=== PATIENT | male | born 1970 | race Caucasian/White ===

== ENCOUNTER 2017-05-27 10:39 | Emergency (ER) | payer MEDICAID ==
[~2017-05-27] VITALS: Ht 175.3 cm; Wt 69.0 kg
[2017-05-27 11:27] LABS: BASOPHILS % 0.5 % (0.0-2.0); EOSINOPHILS % 2.4 % (0.0-5.0); HEMATOCRIT. 36.5 % (42.0-52.0); HEMOGLOBIN. 12.8 g/dL (14.0-18.0); LYMPHOCYTES % 25.5 % (20.0-50.0); MEAN CORPUSCULAR HEMOGLOBIN 32.2 pg (28.0-32.0); MEAN CORPUSCULAR VOLUME 91.8 fL (80.0-94.0); MONOCYTES % 8.1 % (2.0-8.0); NEUTROPHILS % 63.5 % (40.0-76.0); PLATELET 189 x1000/uL (130-400); RED BLOOD CELL COUNT 3.98 mill/uL (4.7-6.1); RED CELL DISTRIBUTION WIDTH 13.7 % (11.6-14.6)
[2017-05-27 11:41] LABS: CARBON DIOXIDE 31 mEq/L (21-32); CHLORIDE 104 mEq/L (98-107); ETHANOL BLOOD < 10 mg/dL
[2017-05-27 12:09] LABS: CLARITY URINE CLEAR (CLEAR); COLOR URINE YELLOW (YELLOW); GLUCOSE URINE NEGATIVE (NEGATIVE); KETONES URINE NEGATIVE (NEGATIVE); LEUKOCYTE ESTERASE URINE NEGATIVE (NEGATIVE); NITRITE URINE NEGATIVE (NEGATIVE); OCCULT BLOOD URINE NEGATIVE (NEGATIVE); PROTEIN URINE NEGATIVE (NEGATIVE); SPECIFIC GRAVITY URINE 1.028 (1.005-1.030)
[2017-05-27 12:39] LABS: *AMPHETAMINES SCREEN URINE PRESUMTIVE POSITIVE (NEGATIVE); *BARBITURATES SCREEN URINE NEGATIVE (NEGATIVE); *BENZODIAZEPINES SCREEN URINE NEGATIVE (NEGATIVE); *COCAINE SCREEN URINE NEGATIVE (NEGATIVE); CANNABINOID URINE SCREEN NEGATIVE (NEGATIVE); METHADONE URINE SCREEN NEGATIVE (NEGATIVE); OPIATES URINE SCREEN NEGATIVE (NEGATIVE); PHENCYCLIDINE URINE SCREEN NEGATIVE (NEGATIVE)
[2017-05-27 20:23] VITALS: BP 120/58
== END 2017-05-27 20:40 ==
LOC: ER 15:51
DX: R45.851 Suicidal ideations (principal); R44.1 Visual hallucinations; F17.200 Nicotine dependence, unspecified, uncomplicated; I10 Essential (primary) hypertension; F32.9 Major depressive disorder, single episode, unspecified; F20.9 Schizophrenia, unspecified; M19.90 Unspecified osteoarthritis, unspecified site; Z88.5 Allergy status to narcotic agent
CPT/HCPCS: 36415; 80053; 80305; 80307; 80329; 81003; 85025; 99285; G0482

== ENCOUNTER 2017-11-22 13:07 | Inpatient (IN) | payer MEDICAID ==
[~2017-11-22] VITALS: Ht 175.3 cm; Wt 68.0 kg
[2017-11-22] MEDS ORDERED: ONDANSETRON HCL 4MG/2ML VIAL IV STA (15:13)
[2017-11-22] MEDS ORDERED: KETOROLAC 30MG/ML VIAL IV ONE (15:15)
[2017-11-22 15:47] LABS: BASOPHILS % 0.6 % (0.0-2.0); EOSINOPHILS % 3.4 % (0.0-5.0); HEMATOCRIT. 37.6 % (42.0-52.0); LYMPHOCYTES % 21.5 % (20.0-50.0); MEAN CORPUSCULAR HEMOGLOBIN 31.5 pg (28.0-32.0); MEAN PLATELET VOLUME 6.8 fl (7.4-10.4); MONOCYTES % 7.2 % (2.0-8.0); NEUTROPHILS % 67.3 % (40.0-76.0); PLATELET 246 x1000/uL (130-400); RED BLOOD CELL COUNT 4.13 mill/uL (4.7-6.1); RED CELL DISTRIBUTION WIDTH 13.4 % (11.6-14.6)
[2017-11-22 15:52] LABS: INR 1.1; PROTHROMBIN TIME 11.8 sec (9.4-11.6)
[2017-11-22 15:58] LABS: CLARITY URINE CLEAR (CLEAR); COLOR URINE YELLOW (YELLOW); KETONES URINE 1+ (NEGATIVE); LEUKOCYTE ESTERASE URINE NEGATIVE (NEGATIVE); NITRITE URINE NEGATIVE (NEGATIVE); OCCULT BLOOD URINE NEGATIVE (NEGATIVE); PROTEIN URINE NEGATIVE (NEGATIVE); SPECIFIC GRAVITY URINE 1.034 (1.005-1.030); UROBILINOGEN URINE 0.2 E.U./dL (0.2-1.0)
[2017-11-22 16:00] LABS: CHLORIDE 99 mEq/L (98-107)
[2017-11-22 16:05] LABS: CARBON DIOXIDE 25 mEq/L (21-32)
[2017-11-22 16:06] LABS: ETHANOL BLOOD < 10 mg/dL
[2017-11-22 16:12] LABS: *AMPHETAMINES SCREEN URINE PRESUMTIVE POSITIVE (NEGATIVE); *BARBITURATES SCREEN URINE NEGATIVE (NEGATIVE); *BENZODIAZEPINES SCREEN URINE NEGATIVE (NEGATIVE); *COCAINE SCREEN URINE NEGATIVE (NEGATIVE); CANNABINOID URINE SCREEN NEGATIVE (NEGATIVE); METHADONE URINE SCREEN NEGATIVE (NEGATIVE); OPIATES URINE SCREEN NEGATIVE (NEGATIVE); PHENCYCLIDINE URINE SCREEN NEGATIVE (NEGATIVE)
[2017-11-22] MEDS ORDERED: IOHEXOL-300 100 ML BOTTLE ONE (17:13)
[2017-11-22] MEDS ORDERED: METRONIDAZOLE 500 MG PREMIX 100 ML IV ONE (18:15)
[2017-11-22] MEDS ORDERED: LEVOFLOXACIN 750MG PREMIX 150 ML IV ONE (18:15)
[2017-11-22] MEDS ORDERED: GUAIFENESIN 200MG/10ML SUGAR FREE UDC PO PRN (19:30)
[2017-11-22] MEDS ORDERED: DOCUSATE SODIUM 100MG CAPSULE PO PRN (19:30)
[2017-11-22] MEDS ORDERED: HYDROCODONE/ACETAMINOPHEN 5/325MG TABLET PO PRN (19:30)
[2017-11-22] MEDS ORDERED: IPRATROPIUM/ALBUTEROL 0.5-3(2.5)MG/3ML NEB INH PRN (19:30)
[2017-11-22] MEDS ORDERED: MAGNESIUM/ALUMINUM HYDROXIDE/SIMETHICONE 30ML UDC PO PRN (19:30)
[2017-11-22] MEDS ORDERED: ONDANSETRON HCL 4MG/2ML VIAL IV PRN (19:30)
[2017-11-22] MEDS ORDERED: CLONIDINE 0.1MG TABLET PO PRN (19:30)
[2017-11-22] MEDS ORDERED: ACETAMINOPHEN 325MG TABLET PO PRN (19:30)
[2017-11-22 20:36] LABS: HEPATITIS B SURFACE ANTIGEN NEGATIVE
[2017-11-22 21:04] LABS: HEPATITIS B CORE AB IGM NEGATIVE
[2017-11-22 21:06] LABS: HEPATITIS A AB IGM NEGATIVE (NEGATIVE)
[2017-11-22 21:17] LABS: CHLORIDE 100 mEq/L (98-107)
[2017-11-22 21:19] LABS: CARBON DIOXIDE 31 mEq/L (21-32)
[2017-11-23 06:07] LABS: BASOPHILS % 0.8 % (0.0-2.0); EOSINOPHILS % 4.5 % (0.0-5.0); HEMATOCRIT. 37.7 % (42.0-52.0); LYMPHOCYTES % 19.2 % (20.0-50.0); MEAN CORPUSCULAR HEMOGLOBIN 31.6 pg (28.0-32.0); MEAN CORPUSCULAR VOLUME 91.4 fL (80.0-94.0); MEAN PLATELET VOLUME 7.1 fl (7.4-10.4); MONOCYTES % 8.7 % (2.0-8.0); NEUTROPHILS % 66.8 % (40.0-76.0); PLATELET 223 x1000/uL (130-400); RED BLOOD CELL COUNT 4.12 mill/uL (4.7-6.1); RED CELL DISTRIBUTION WIDTH 13.3 % (11.6-14.6)
[2017-11-23 09:45] VITALS: BP 97/57
[2017-11-23] MEDS: SODIUM CHLORIDE 0.9% 1,000 ML IV SCH ×2 (11:00→17:51)
[2017-11-23 12:29] VITALS: BP 90/44
[2017-11-23] MEDS ORDERED: LEVOFLOXACIN 500MG PREMIX 100 ML IV SCH (15:00)
[2017-11-23] MEDS ORDERED: CLON0.1T PO (16:36)
[2017-11-23] MEDS ORDERED: QUET200T PO (16:36)
[2017-11-23 16:38] VITALS: BP 102/59
[2017-11-23] MEDS: METRONIDAZOLE 500 MG PREMIX 100 ML IV SCH ×2 (17:36→22:19)
[2017-11-23] MEDS: ENOXAPARIN 40MG/0.4ML SYR SUBCUT SCH (17:53)
[2017-11-23] MEDS: CLONIDINE 0.1MG TABLET PO SCH (18:00)
[2017-11-23] MEDS: LEVOFLOXACIN 500MG PREMIX 100 ML IV SCH (19:08)
[2017-11-23 20:00] VITALS: BP 109/67
[2017-11-23] MEDS: QUETIAPINE FUMARATE 100MG TABLET PO SCH (22:19)
[2017-11-24] VITALS: BP 117/62
[2017-11-24 04:00] VITALS: BP 103/71
[2017-11-24] MEDS: METRONIDAZOLE 500 MG PREMIX 100 ML IV SCH ×3 (06:20→21:52)
[2017-11-24] MEDS: CLONIDINE 0.1MG TABLET PO SCH ×2 (06:21→18:00)
[2017-11-24] MEDS: SODIUM CHLORIDE 0.9% 1,000 ML IV SCH ×2 (06:22→11:25)
[2017-11-24 08:00] VITALS: BP 113/69
[2017-11-24] MEDS: QUETIAPINE FUMARATE 100MG TABLET PO SCH ×2 (09:08→21:51)
[2017-11-24 12:00] VITALS: BP 101/63
[2017-11-24] MEDS: ENOXAPARIN 40MG/0.4ML SYR SUBCUT SCH (15:26)
[2017-11-24 16:00] VITALS: BP 130/67
[2017-11-24] MEDS: LEVOFLOXACIN 500MG PREMIX 100 ML IV SCH (18:04)
[2017-11-24 20:35] VITALS: BP 104/66
[2017-11-25] MEDS: SODIUM CHLORIDE 0.9% 1,000 ML IV SCH ×2 (00:45→13:13)
[2017-11-25 00:50] VITALS: BP 98/56
[2017-11-25 04:00] VITALS: BP 106/62
[2017-11-25] MEDS: CLONIDINE 0.1MG TABLET PO SCH (06:00)
[2017-11-25] MEDS: METRONIDAZOLE 500 MG PREMIX 100 ML IV SCH ×2 (06:19→13:08)
[2017-11-25 07:49] LABS: BASOPHILS % 0.5 % (0.0-2.0); EOSINOPHILS % 1.3 % (0.0-5.0); HEMATOCRIT. 38.6 % (42.0-52.0); HEMOGLOBIN. 13.5 g/dL (14.0-18.0); LYMPHOCYTES % 14.5 % (20.0-50.0); MEAN CORPUSCULAR HEMOGLOBIN 32.3 pg (28.0-32.0); MEAN CORPUSCULAR VOLUME 92.6 fL (80.0-94.0); MEAN PLATELET VOLUME 7.4 fl (7.4-10.4); MONOCYTES % 7.4 % (2.0-8.0); NEUTROPHILS % 76.3 % (40.0-76.0); PLATELET 186 x1000/uL (130-400); RED BLOOD CELL COUNT 4.17 mill/uL (4.7-6.1); RED CELL DISTRIBUTION WIDTH 13.2 % (11.6-14.6)
[2017-11-25 08:00] VITALS: BP 96/61
[2017-11-25 08:55] LABS: CHLORIDE 105 mEq/L (98-107)
[2017-11-25] MEDS: QUETIAPINE FUMARATE 100MG TABLET PO SCH (09:15)
[2017-11-25 09:31] LABS: CARBON DIOXIDE 24 mEq/L (21-32)
[2017-11-25 12:00] VITALS: BP 99/65
[2017-11-25] MEDS: ENOXAPARIN 40MG/0.4ML SYR SUBCUT SCH (13:08)
[2017-11-25 15:48] VITALS: BP 99/65
[2017-11-25 16:00] VITALS: BP 121/79
== END 2017-11-25 21:15 | disposition home or self-care (01) | DRG 249 ==
LOC: ER 14:25 → 6EST 18:18 → EDBEDREQTM 18:22 → EDBEDREQ 18:22 → ENRESERV 11-23 07:45
PROVIDERS: ADMIT Internal Medicine; ATTEND Internal Medicine
DX: K52.9 Noninfective gastroenteritis and colitis, unspecified (principal); F20.9 Schizophrenia, unspecified; I10 Essential (primary) hypertension; D64.9 Anemia, unspecified; F17.200 Nicotine dependence, unspecified, uncomplicated; M79.7 Fibromyalgia; F19.10 Other psychoactive substance abuse, uncomplicated; F32.9 Major depressive disorder, single episode, unspecified; M19.90 Unspecified osteoarthritis, unspecified site; Z60.2 Problems related to living alone; Z86.010 Personal history of colon polyps; Z90.49 Acquired absence of other specified parts of digestive tract; Z79.899 Other long term (current) drug therapy; Z88.6 Allergy status to analgesic agent
CPT/HCPCS: 36415; 74177; 76870; 80048; 80053; 80061; 80305; 81003; 83690; 83735; 84443; 85025; 85610; 86705; 86709; 86803; 87040; 87086; 87340; 93970; 93976; G0482; J1650; J1885; J1956; J2405; J3490; J7030; Q9967